=== PATIENT | male | born 1995 | race Two or more races ===

== ENCOUNTER 2018-07-07 20:59 | Emergency (ER) | payer BC, MEDICAID ==
[~2018-07-07] VITALS: Ht 170.2 cm; Wt 68.0 kg
[2018-07-07 21:08] VITALS: BP 132/93
== END 2018-07-07 21:49 | disposition home or self-care (01) ==
LOC: ER 21:01
DX: G51.0 Bell's palsy (principal)

== ENCOUNTER 2019-06-01 20:13 | Emergency (ER) | payer BC ==
[~2019-06-01] VITALS: Ht 170.2 cm; Wt 81.6 kg
[2019-06-01 20:13] VITALS: BP 137/79
== END 2019-06-01 21:04 | disposition home or self-care (01) ==
LOC: ER 20:17
DX: L60.0 Ingrowing nail (principal)